=== PATIENT | female | born 1990 | race Caucasian/White ===

== ENCOUNTER 2019-10-29 10:30 | Outpatient (REF) | payer MEDICAID, SELFPAY ==
--- NOTE | 2019-10-29 10:30 | PAPFT_PTH ---
PATIENT: Jaleesa Goddard LOC: NCN U#:[id number] AGE/SX: 29/F ROOM: RE10/29/[address]: Ruby Wallace : 1990 BED: DIS: 10/29/2019 SPEC #: [id number] RECD: 10/30/19 12:50 STATUS: DORITA REVanesa #: [id number] NASH: 10/29/19 10:[address]: Ruby Wallace DEPT: [facility] Cytology RECD BY: Rubina Mendez ENTERED: 10/30/19 12:50 SP TYPE: PAPFT OTHR DR: Shiloh Schulte Tissues: 1 - CX/ENDOCX FOR PAP SMEARS Procedures: PAP THIN PREP/[facility] Screening Comments: [id number] (CHLAMYDIA/GC)
[2019-10-31 14:10] LABS: Chlamydia Result Negative (Negative); GC Result Negative (Negative)
== END 2019-10-29 10:50 ==
LOC: NCHCN 10:30
PROVIDERS: PCP Nurse Practitioner Family; Visit Provider Family Medicine
DX: Z12.79 Encounter for screening for malignant neoplasm of other genitourinary organs (principal); Z12.4 Encounter for screening for malignant neoplasm of cervix; Z11.3 Encounter for screening for infections with a predominantly sexual mode of transmission
CPT/HCPCS: 87491; 87591; 88142

== ENCOUNTER 2020-02-10 13:28 | Outpatient (REF) | payer MEDICAID, SELFPAY ==
[2020-02-13 06:11] LABS: Chlamydia amplified RNA Negative (Negative); N gonorrhoeae amplified RNA Negative (Negative); Source CERVIX
== END 2020-02-10 13:48 ==
LOC: NCHCN 13:28
PROVIDERS: PCP Nurse Practitioner Family; Visit Provider Family Medicine
DX: Z11.3 Encounter for screening for infections with a predominantly sexual mode of transmission (principal)
CPT/HCPCS: 87491; 87591

== ENCOUNTER 2020-06-29 18:19 | Outpatient (REF) | payer MEDICAID, SELFPAY ==
[2020-07-01 02:32] LABS: COVID-19 RT-PCR UVMMC Result Negative (Negative)
== END 2020-06-29 18:20 | disposition home or self-care (01) ==
LOC: NCHCN 18:19
PROVIDERS: PCP Nurse Practitioner Family; Visit Provider Nurse Practitioner Family
DX: Z20.822 Contact with and (suspected) exposure to COVID-19 (principal); R05 Cough
CPT/HCPCS: U0003

== ENCOUNTER 2021-07-22 20:49 | Outpatient (REF) | payer MEDICAID, SELFPAY ==
--- OUTSIDE RECORDS SUMMARY | 2021-07-22 20:52 | XMS_ITS | CCD ---
:1990 Author Care Team Providers Name Role Phone Kusum BERG Attending Physician Unavailable Kusum BERG Er Physician 1 Unavailable H. Registered Nurse Unavailable Vital Signs Vital Sign Value Unit Date/Time Recent/Initial? BMI (Body Mass Index) 31.89 kg/m^2 07/01/2021 16:46 In itial VS Weight Measured 180 lbs 07/01/2021 16:46 Initial VS Height 63 in 07/01/2021 16:46 Initial VS BSA (Body Surface 1.91 m^2 07/01/2021 16:46 Initia l VS Area) BP Systolic 136 mmHg 07/01/2021 16:46 Initial VS BP Diastolic 101 mmHg 07/01/2021 16:46 Initial VS Respiratory Rate 20 bpm 07/01/2021 16:46 Initial VS Heart Rate 78 bpm 07/01/2021 16:46 Initial VS O2 % BldC Oximetry 99 % 07/01/2021 16:46 Initi al VS Body Temperature 36.3 degrees 07/01/2021 16:46 Initial VS BP Systolic 115 mmHg 07/01/2021 18:10 Most Recent VS BP Diastolic 82 mmHg 07/01/2021 18:10 Most Recent VS Respiratory Rate 20 bpm 07/01/2021 18:10 Most Re cent VS Heart Rate 72 bpm 07/01/2021 18:10 Most Recent VS O2 % BldC Oximetry 100 % 07/01/2021 18:10 Most Recent VS Allergies Allergy Code Allergy Type Reaction Status BEES {Clinical 0 Drug allergy SITE SWELLING Active monitoring unavailable} AMOXICILLIN 723 Drug allergy UNKNOWN; Hives Active Procedures Unknown or Not Available. History of Immunizations Unknown or Not Available. Problems Problem Code Start Date Resolved Date Status MATERNAL MENTAL 046069743 Active DISORDER, WITH DELIVERY DEPRESSIVE DISORDER, 38915845 Active NOT ELSEWHERE CLASSIFIED Fibromyalgia 198218009 Active Bipolar disorder 39384696 Active Depression 75699324 Active Results Unknown or Not Available. Active Medications Medication Code Dose Units Frequency Route Modification Start Date/Time Cyclobenzaprine 291404 1 TABLET THREE TIMES ORAL 03/27 10MG Oral Tablet A DAY 21:38 Prescription Detail TAKE 1 TABLET ORAL THREE MARBELLA ES A DAY Bactrim DS 176139 1 TABLET TWICE A ORAL 04/12/2021 800MG-160MG Oral DAY 14:58 Tablet Prescription Detail TAKE 1 TABLET ORAL TWICE A D AY Medications Administered During Visit Medication Dose Units Frequency Route Date/Time of Last Dose HydrOXYzine 25 MG X1 PO 07/01/2021 17 :05 PAMOATE CAPSULE: 25MG Encounters Encounter Diagnosis Diagnosis Code Start Date Other chest pain R0789 07/01/2021 Social History Smoking Status Code Start Date End Date Former smoker [id number] 2008 06/24/2020 Patient Decision Aids Unknown or Not Available. Discharge Instructions You were admitted to [facility] on 07/01/2021 16:23 with a principal diagnosis of Other chest pain You were discharged from [facility] on 07/01/2021 18:21 Should you have any questions prior to d ischarge, please contact a member of your healthcare team. If you have left the spital and have any questions, please contact your primary care physician. Chief Complaint and Reason For Visit Chief Complaint Date of Onset CHEST PAIN Function Status Unknown or Not Available. Plan of Care Unknown or Not Available. Referral/Transition of Care Unknown or Not Available.
--- OUTSIDE RECORDS SUMMARY | 2021-07-22 20:52 | XMS_ITS | CCD ---
:1990 Author Care Team Providers Name Role Phone Kusum DSOUZA Attending Physician Unavailable Kusum DSOUZA Er Physician 1 Unavailable D. Registered Nurse Unavailable Vital Signs Vital Sign Value Unit Date/Time Recent/Initial? BMI (Body Mass Index) 35.43 kg/m^2 04/18/2021 18:15 In itial VS Weight Measured 200 lbs 04/18/2021 18:15 Initial VS Height 63 in 04/18/2021 18:15 Initial VS BSA (Body Surface 2.01 m^2 04/18/2021 18:15 Initia l VS Area) BP Systolic 112 mmHg 04/18/2021 18:15 Initial VS BP Diastolic 82 mmHg 04/18/2021 18:15 Initial VS Respiratory Rate 20 bpm 04/18/2021 18:15 Initial VS Heart Rate 82 bpm 04/18/2021 18:15 Initial VS O2 % BldC Oximetry 100 % 04/18/2021 18:15 Initi al VS Body Temperature 37 degrees 04/18/2021 18:15 Initial VS BP Systolic 118 mmHg 04/18/2021 21:39 Most Recent VS BP Diastolic 76 mmHg 04/18/2021 21:39 Most Recent VS Respiratory Rate 18 bpm 04/18/2021 21:39 Most Re cent VS Heart Rate 75 bpm 04/18/2021 21:39 Most Recent VS O2 % BldC Oximetry 97 % 04/18/2021 21:39 Most Recent VS Body Temperature 37.2 degrees 04/18/2021 21:39 Most Re cent VS Allergies Allergy Code Allergy Type Reaction Status BEES {Clinical 0 Drug allergy SITE SWELLING Active monitoring unavailable} AMOXICILLIN 723 Drug allergy UNKNOWN; Hives Active Procedures Unknown or Not Available. History of Immunizations Unknown or Not Available. Problems Problem Code Start Date Resolved Date Status MATERNAL MENTAL 252810345 Active DISORDER, WITH DELIVERY DEPRESSIVE DISORDER, 92590254 Active NOT ELSEWHERE CLASSIFIED Fibromyalgia 322754020 Active Bipolar disorder 01704604 Active Depression 43398754 Active Results COMPREHENSIVE METABOLIC PANEL (CMP) - Co llect Date/Time: 04/18/2021 18:45 Test Name Code Test Result Test Units Test Ref Range GLUCOSE 2345-7 99 mg/dL L=70 H=11 6 BUN 3094-0 12 mg/dL L=6 H=25 CREATININE 2160-0 0.92 mg/dL L=0.51 H=0.95 SODIUM SERUM 2951-2 135 mmol/L L=136 H=14 5 POTASSIUM SERUM 2823-3 4.2 mmol/L L=3.4 H =5.2 CHLORIDE SERUM 2075-0 101 mmol/L L=96 H= 110 CARBON DIOXIDE (CO2) 2028-9 23 mmol/L L=22 H=34 ANION GAP 70527-1 11.2 mmol/L CALCIUM SERUM 84399-4 9.4 mg/dL L=8.2 H=10.2 BILIRUBIN TOTAL 1975-2 0.2 mg/dL L=0.0 H =1.3 ALK. PHOS. 6768-6 149 U/L L=46 H=11 6 SGOT (AST) 1920-8 24 U/L L=15 H=37 SGPT (ALT) 1742-6 56 U/L L=12 H=78 TOTAL PROTEIN 2885-2 8.7 gm/dL L=6.0 H=8 .0 ALBUMIN 1751-7 4.5 gm/dL L=3.4 H=5. 0 AGE 30 years eGFR (non-Afr.Amer.) 44860-0 73 mL/min eGFR (Afr-Citizen [place]) 52900-6 88 mL/min LIPASE* - Collect Date/Time: 04/18/2021 18:45 Test Name Code Test Result Test Units Test Ref Range LIPASE 148 U/L L=73 H=39 3 CBC W/ DIFFERENTIAL* - Collect Date/Time : 04/18/2021 18:45 Test Name Code Test Result Test Units Test Ref Range WBC 6690-2 7.31 th/cmm L=5.00 H=10.00 NEUT % 56.4 % L=40.0 H=80.0 LYMPH % 34.3 % L=10.0 H=50.0 MONO % 05778-2 6.7 % L=2.0 H=12.0 EOS % 1.5 % L=0.0 H=8. 0 BASO % 0.7 % L=0.0 H=3. 0 IG % 2514-8 0.4 % L=0.0 H=1. 1 NRBC % 35363-3 0.0 % L=0.0 H=0. 0 NEUT abs count 751-8 4.1 th/cmm L=1.6 H= 8.4 LYMPH abs count 731-0 2.5 th/cmm L=1.5 H =4.0 MONO abs count 742-7 0.5 th/cmm L=0.2 H= 1.0 EOS abs count 711-2 0.1 th/cmm L=0.0 H=0 .5 BASO abs count 704-7 0.1 th/cmm L=0.0 H= 0.2 IG abs count 29548-3 0.0 th/cmm L=0.0 H=0. 1 NRBC abs count 34027-3 0.0 mil/cmm L=0.0 H= 0.0 RBC 789-8 5.04 mil/cmm L=3.90 H=5.40 HEMOGLOBIN 718-7 14.0 gm/dL L=12.0 H=16.0 HEMATOCRIT 4544-3 42 % L=37 H=47 MCV 787-2 84 fL L=82 H=92 MCH 785-6 27.8 pg L=27.0 H=31.0 MCHC 786-4 33.2 % L=32.0 H=36.0 RDW-SD 788-0 41.7 fL L=39.0 H=49.0 PLATELET COUNT 777-3 416 th/cmm L=150 H= 450 [facility] COVID RHEONIX* - Collect Date/[place] e: 04/18/2021 19:32 Test Name Code Test Result Test Units Test Ref Range Tier- INPATIENT/ED N/A SARS COV2 RNA: 26200-4 NEGATIVE N/A REFERENCE RAN GE: NEGAT TEST (URINE) QUALITATIVE - Col lect Date/Time: 04/18/2021 18:45 Test Name Code Test Result Test Units Test Ref Range TEST 2106-3 NEGATIVE N/A URINALYSIS WITH REFLEX CULT IF POSITIVE* - Collect Date/Time: 04/18/2021 18:45 Test Name Code Test Result Test Units Test Ref Range COLLECTION MODE: CLEAN CATCH N/A Color 5778-6 YELLOW N/A yellow Appearance 5767-9 CLEAR N/A clear Glucose urine 51272-6 NEGATIVE N/A negative mg/ dl Bilirubin 5770-3 NEGATIVE N/A negative Ketones 2514-8 NEGATIVE N/A negative mg/d l Spec gravity 5811-5 <=1.005 N/A 1.003 - 1.030 pH urine 2756-5 5.5 N/A 5.0 - 7.0 Protein 99699-5 NEGATIVE N/A negative mg/d l Urobilinogen 39866-4 0.2 N/A <or= 1 EU/d l Nitrite. 5802-4 NEGATIVE N/A negative Blood 5794-3 TRACE-IN N/A negative Leukocytes. NEGATIVE N/A negative MICROSCOPIC INDICATED N/A WBCs. 23543-5 0-5 N/A 0-5 / hpf RBCs 14837-1 0-5 N/A 0-5 / hpf Epith cells 05395-3 0-5 N/A 0-5 / hpf Cell types squamous N/A Crystals none N/A none Bacteria minimal N/A none Mucus 8247-9 none N/A none Casts 15078-8 none N/A none /lp f Active Medications Medication Code Dose Units Frequency Route Modification Start Date/Time Cyclobenzaprine 952546 1 TABLET THREE TIMES ORAL 03/27 10MG Oral Tablet A DAY 21:38 Prescription Detail TAKE 1 TABLET ORAL THREE MARBELLA ES A DAY Bactrim DS 087461 1 TABLET TWICE A ORAL 04/12/2021 800MG-160MG Oral DAY 14:58 Tablet Prescription Detail TAKE 1 TABLET ORAL TWICE A D AY Medications Administered During Visit Medication Dose Units Frequency Route Date/Time of Last Dose ACETAMINOPHEN INJ SDV: 1000 MG X1 IVPB 1000MG/100ML 19:25 SODIUM CHLORIDE 0.9% 1000 ML X1 IV 03/27 1000ML 19:25 FentaNYL INJ SDV: 50 MCG X1 IVP 022 100MCG/2ML 19:50 KETOROLAC INJ SDV: 15 MG X1 IVP 2021 30MG/1ML 21:39 CYCLOBENZAPRINE 40 MG X1 PO 2 TABLET: 10MG 21:42 Encounters Encounter Diagnosis Diagnosis Code Start Date Other low back pain M5459 04/18/2021 Social History Smoking Status Code Start Date End Date Former smoker [id number] 2008 06/24/2020 Patient Decision Aids Unknown or Not Available. Discharge Instructions You were admitted to [facility] on 04/18/2021 17:49 with a principal diagnosis of Other low back pain You had the following tests done: [facility] COVID RHEONIX* CBC W/ DIFFERENTIAL* COMPREHENSIVE METABOLIC PANEL (CMP) LIPASE* TEST (URINE) QUALITATIVE URINALYSIS WITH REFLEX CULT IF POSITIVE* You were discharged from [facility] on 04/18/2021 21:48 Should you have any questions prior to d ischarge, please contact a member of your healthcare team. If you have left the ho spital and have any questions, please contact your primary care physician. Chief Complaint and Reason For Visit Chief Complaint Date of Onset STOMACH PAIN 04/18/2021 Function Status Unknown or Not Available. Plan of Care Unknown or Not Available. Referral/Transition of Care Unknown or Not Available.
--- OUTSIDE RECORDS SUMMARY | 2021-07-22 20:53 | XMS_ITS | CCD ---
:1990 Author Care Team Providers Name Role Phone Kusum DSOUZA Attending Physician Unavailable Kusum DSOUZA Er Physician 1 Unavailable Panchito ZIEGLER (Secondary) Physician Unavailab Fowler Registered Nurse Unavailable Ree. Registered Nurse Unavailable Vital Signs Vital Sign Value Unit Date/Time Recent/Initial? BMI (Body Mass Index) 35.43 kg/m^2 04/13/2021 17:43 In itial VS Weight Measured 200 lbs 04/13/2021 17:43 Initial VS Height 63 in 04/13/2021 17:43 Initial VS BSA (Body Surface 2.01 m^2 04/13/2021 17:43 Initia l VS Area) BP Systolic 133 mmHg 04/13/2021 17:43 Initial VS BP Diastolic 81 mmHg 04/13/2021 17:43 Initial VS Respiratory Rate 22 bpm 04/13/2021 17:43 Initial VS Heart Rate 98 bpm 04/13/2021 17:43 Initial VS O2 % BldC Oximetry 99 % 04/13/2021 17:43 Initi al VS BP Systolic 118 mmHg 04/13/2021 20:06 Most Recent VS BP Diastolic 78 mmHg 04/13/2021 20:06 Most Recent VS Respiratory Rate 22 bpm 04/13/2021 20:06 Most Re cent VS Heart Rate 85 bpm 04/13/2021 20:06 Most Recent VS O2 % BldC Oximetry 99 % 04/13/2021 20:06 Most Recent VS Allergies Allergy Code Allergy Type Reaction Status BEES {Clinical 0 Drug allergy SITE SWELLING Active monitoring unavailable} AMOXICILLIN 723 Drug allergy UNKNOWN; Hives Active Procedures Unknown or Not Available. History of Immunizations Unknown or Not Available. Problems Problem Code Start Date Resolved Date Status MATERNAL MENTAL 192607026 Active DISORDER, WITH DELIVERY DEPRESSIVE DISORDER, 36205603 Active NOT ELSEWHERE CLASSIFIED Fibromyalgia 852028065 Active Bipolar disorder 57169954 Active Depression 29645288 Active Results BASIC METABOLIC PANEL (BMP) - Collect Da te/Time: 04/13/2021 18:48 Test Name Code Test Result Test Units Test Ref Range GLUCOSE 2345-7 94 mg/dL L=70 H=11 6 BUN 3094-0 9 mg/dL L=6 H=25 CREATININE 2160-0 0.84 mg/dL L=0.51 H=0.95 SODIUM SERUM 2951-2 142 mmol/L L=136 H=14 5 POTASSIUM SERUM 2823-3 3.7 mmol/L L=3.4 H =5.2 CHLORIDE SERUM 2075-0 104 mmol/L L=96 H= 110 CARBON DIOXIDE (CO2) 2028-9 26 mmol/L L=22 H=34 ANION GAP 10858-3 12.0 mmol/L CALCIUM SERUM 91362-2 9.3 mg/dL L=8.2 H=10.2 AGE 30 years eGFR (non-Afr.Amer.) 39539-1 81 mL/min eGFR (Afr-[place]ristanian) 06438-1 98 mL/min MAGNESIUM SERUM* - Collect Date/Time: 18:48 Test Name Code Test Result Test Units Test Ref Range MAGNESIUM 34843-3 2.2 mg/dL L=1.8 H=2. 4 TROPONIN HIGH SENSITIVITY* - Collect Last e/Time: 04/13/2021 18:48 Test Name Code Test Result Test Units Test Ref Range TROPONIN HS <4.0 pg/mL L=0.0 H=60 .4 Specimen seq. ADM. N/A TROPONIN-I ADM.* - Collect Date/Time: 18:48 Test Name Code Test Result Test Units Test Ref Range TROPONIN-I 79826-6 <0.017 ng/mL L=0.000 H=0. 060 CBC W/ DIFFERENTIAL* - Collect Date/Time : 04/13/2021 18:48 Test Name Code Test Result Test Units Test Ref Range WBC 6690-2 9.30 th/cmm L=5.00 H=10.00 NEUT % 77.9 % L=40.0 H=80.0 LYMPH % 14.2 % L=10.0 H=50.0 MONO % 11826-7 6.5 % L=2.0 H=12.0 EOS % 0.6 % L=0.0 H=8. 0 BASO % 0.4 % L=0.0 H=3. 0 IG % 2514-8 0.4 % L=0.0 H=1. 1 NRBC % 26438-5 0.0 % L=0.0 H=0. 0 NEUT abs count 751-8 7.2 th/cmm L=1.6 H= 8.4 LYMPH abs count 731-0 1.3 th/cmm L=1.5 H =4.0 MONO abs count 742-7 0.6 th/cmm L=0.2 H= 1.0 EOS abs count 711-2 0.1 th/cmm L=0.0 H=0 .5 BASO abs count 704-7 0.0 th/cmm L=0.0 H= 0.2 IG abs count 88118-5 0.0 th/cmm L=0.0 H=0. 1 NRBC abs count 38467-8 0.0 mil/cmm L=0.0 H= 0.0 RBC 789-8 4.60 mil/cmm L=3.90 H=5.40 HEMOGLOBIN 718-7 12.8 gm/dL L=12.0 H=16.0 HEMATOCRIT 4544-3 39 % L=37 H=47 MCV 787-2 86 fL L=82 H=92 MCH 785-6 27.8 pg L=27.0 H=31.0 MCHC 786-4 32.5 % L=32.0 H=36.0 RDW-SD 788-0 43.0 fL L=39.0 H=49.0 PLATELET COUNT 777-3 304 th/cmm L=150 H= 450 Active Medications Medications Administered During Visit Medication Dose Units Frequency Route Date/Time of Last Dose SODIUM CHLORIDE 1000 ML X1 19:01 0.9% 1000ML Encounters Encounter Diagnosis Diagnosis Code Start Date Other chest pain R0789 04/13/2021 Social History Smoking Status Code Start Date End Date Current every day smoker [id number] 2008 Patient Decision Aids Unknown or Not Available. Discharge Instructions You were admitted to [facility] on 04/13/2021 17:19 with a principal diagnosis of Other chest pain You had the following tests done: BASIC METABOLIC PANEL (BMP) CBC W/ DIFFERENTIAL* MAGNESIU M SERUM* TROPONIN HIGH SENSITIVITY* TROPONIN-I ADM.* You were discharged from [facility] on 04/13/2021 20:06 Should you have any questions prior to d ischarge, please contact a member of your healthcare team. If you have left the ho spital and have any questions, please contact your primary care physician. Chief Complaint and Reason For Visit Chief Complaint Date of Onset CHEST PAIN PAIN IN LEFT ARM DIZZINESS Function Status Unknown or Not Available. Plan of Care Unknown or Not Available. Referral/Transition of Care Unknown or Not Available.
--- OUTSIDE RECORDS SUMMARY | 2021-07-22 20:53 | XMS_ITS | CCD ---
:1990 Author Care Team Providers Name Role Phone Junior BASS Attending Physician Unavailable Shane DUGAN Er Physician 1 Unavailable W., X Registered Nurse Unavailable Vital Signs Vital Sign Value Unit Date/Time Recent/Initial? BMI (Body Mass Index) 35.43 kg/m^2 04/12/2021 11:38 In itial VS Weight Measured 200 lbs 04/12/2021 11:38 Initial VS Height 63 in 04/12/2021 11:38 Initial VS BSA (Body Surface 2.01 m^2 04/12/2021 11:38 Initia l VS Area) BP Systolic 132 mmHg 04/12/2021 11:38 Initial VS BP Diastolic 80 mmHg 04/12/2021 11:38 Initial VS Respiratory Rate 18 bpm 04/12/2021 11:38 Initial VS Heart Rate 113 bpm 04/12/2021 11:38 Initial VS O2 % BldC Oximetry 99 % 04/12/2021 11:38 Initi al VS Body Temperature 36 degrees 04/12/2021 11:38 Initial VS BP Systolic 124 mmHg 04/12/2021 14:07 Most Recent VS BP Diastolic 64 mmHg 04/12/2021 14:07 Most Recent VS Respiratory Rate 16 bpm 04/12/2021 16:02 Most Re cent VS Heart Rate 72 bpm 04/12/2021 16:02 Most Recent VS O2 % BldC Oximetry 99 % 04/12/2021 16:02 Most Recent VS Allergies Allergy Code Allergy Type Reaction Status BEES {Clinical 0 Drug allergy SITE SWELLING Active monitoring unavailable} AMOXICILLIN 723 Drug allergy UNKNOWN; Hives Active Procedures Unknown or Not Available. History of Immunizations Unknown or Not Available. Problems Problem Code Start Date Resolved Date Status MATERNAL MENTAL 051096798 Active DISORDER, WITH DELIVERY DEPRESSIVE DISORDER, NOT 99776247 Act donn ELSEWHERE CLASSIFIED Fibromyalgia 898583200 Active Bipolar disorder 17883782 Active Depression 90630264 Active Pyelonephritis 73462991 04/12/2021 Resolved Anxiety 25332589 04/12/2021 Resolved UTI 82187926 04/12/2021 Resolved Results BASIC METABOLIC PANEL (BMP) - Collect Da te/Time: 04/12/2021 11:58 Test Name Code Test Result Test Units Test Ref Range GLUCOSE 2345-7 114 mg/dL L=70 H=11 6 BUN 3094-0 10 mg/dL L=6 H=25 CREATININE 2160-0 0.85 mg/dL L=0.51 H=0.95 SODIUM SERUM 2951-2 141 mmol/L L=136 H=14 5 POTASSIUM SERUM 2823-3 3.9 mmol/L L=3.4 H =5.2 CHLORIDE SERUM 2075-0 105 mmol/L L=96 H= 110 CARBON DIOXIDE (CO2) 2028-9 25 mmol/L L=22 H=34 ANION GAP 98209-8 10.7 mmol/L CALCIUM SERUM 86446-3 9.2 mg/dL L=8.2 H=10.2 AGE 30 years eGFR (non-Afr.Amer.) 43978-9 80 mL/min eGFR (Afr-Greek) 55362-1 96 mL/min CBC W/ DIFFERENTIAL* - Collect Date/Time : 04/12/2021 11:58 Test Name Code Test Result Test Units Test Ref Range WBC 6690-2 11.23 th/cmm L=5.00 H=10.00 NEUT % 77.7 % L=40.0 H=80.0 LYMPH % 12.6 % L=10.0 H=50.0 MONO % 22097-4 8.4 % L=2.0 H=12.0 EOS % 0.5 % L=0.0 H=8. 0 BASO % 0.4 % L=0.0 H=3. 0 IG % 2514-8 0.4 % L=0.0 H=1. 1 NRBC % 91513-9 0.0 % L=0.0 H=0. 0 NEUT abs count 751-8 8.7 th/cmm L=1.6 H= 8.4 LYMPH abs count 731-0 1.4 th/cmm L=1.5 H =4.0 MONO abs count 742-7 0.9 th/cmm L=0.2 H= 1.0 EOS abs count 711-2 0.1 th/cmm L=0.0 H=0 .5 BASO abs count 704-7 0.0 th/cmm L=0.0 H= 0.2 IG abs count 62186-8 0.0 th/cmm L=0.0 H=0. 1 NRBC abs count 63362-9 0.0 mil/cmm L=0.0 H= 0.0 RBC 789-8 4.78 mil/cmm L=3.90 H=5.40 HEMOGLOBIN 718-7 13.2 gm/dL L=12.0 H=16.0 HEMATOCRIT 4544-3 41 % L=37 H=47 MCV 787-2 85 fL L=82 H=92 MCH 785-6 27.6 pg L=27.0 H=31.0 MCHC 786-4 32.4 % L=32.0 H=36.0 RDW-SD 788-0 43.8 fL L=39.0 H=49.0 PLATELET COUNT 777-3 293 th/cmm L=150 H= 450 CULT URINE CULTURE* - Collect Date/Time: 04/12/2021 13:15 Test Name Code Test Result Test Units Test Ref Range COLLECTION MODE: CLEAN CATCH N/A TEST (URINE) QUALITATIVE - Col lect Date/Time: 04/12/2021 13:15 Test Name Code Test Result Test Units Test Ref Range TEST 6-3 NEGATIVE N/A URINALYSIS WITH REFLEX CULT IF POSITIVE* - Collect Date/Time: 04/12/2021 13:15 Test Name Code Test Result Test Units Test Ref Range COLLECTION MODE: CLEAN CATCH N/A Color 5778-6 YELLOW N/A yellow Appearance 5767-9 CLEAR N/A clear Glucose urine 42941-6 NEGATIVE N/A negative mg/ dl Bilirubin 5770-3 NEGATIVE N/A negative Ketones 2514-8 NEGATIVE N/A negative mg/d l Spec gravity 5811-5 1.015 N/A 1.003 - 1.030 pH urine 2756-5 6.0 N/A 5.0 - 7.0 Protein 93197-8 NEGATIVE N/A negative mg/d l Urobilinogen 65569-0 0.2 N/A <or= 1 EU/d l Nitrite. 5802-4 NEGATIVE N/A negative Blood 5794-3 SMALL N/A negative Leukocytes. NEGATIVE N/A negative MICROSCOPIC INDICATED N/A WBCs. 65881-4 10-25 N/A 0-5 / hpf RBCs 03020-4 0-5 N/A 0-5 / hpf Epith cells 40712-1 5-10 N/A 0-5 / hpf Cell types squamous N/A Crystals none N/A none Bacteria minimal N/A none Mucus 8247-9 none N/A none Casts 40551-4 none N/A none /lp f Active Medications Medication Code Dose Units Frequency Route Modification Start Date/Time SODIUM 8177747 X1 IV 04/12/2021 CHLORIDE 0.9% 12:43 1000ML ~~ SODIUM 5558277 1018 ML CHLORIDE 0.9% 1000ML Medications Administered During Visit Medication Dose Units Frequency Route Date/Time of Last Dose KETOROLAC INJ SDV: 15 MG X1 IVP 2021 30MG/1ML 13:17 SODIUM CHLORIDE 0.9% 1000 ML X1 IV 03/26 1000ML 13:13 CefTRIAXone IVPB: 1 GM X1 IVPB 022 1GM/50ML 15:30 ACETAMINOPHEN INJ 1000 MG X1 IVPB 022 SDV: 1000MG/100ML 15:00 Encounters Encounter Diagnosis Diagnosis Code Start Date Acute pyelonephritis N10 04/12/2021 Social History Smoking Status Code Start Date End Date Current every day smoker [id number] 2008 Patient Decision Aids Unknown or Not Available. Discharge Instructions You were admitted to [facility] on 04/12/2021 11:17 with a principal diagnosis of Acute pyelonephritis You had the following tests done: CULT URINE CULTURE* TEST (URINE) QUALITATIVE URINALYSIS WITH REFLEX CULT IF POSITIVE* BASIC METABOLIC PANEL (BMP) CBC W/ DIFFERENTIAL* You were discharged from [facility] on 04/12/2021 16:25 Should you have any questions prior to d ischarge, please contact a member of your healthcare team. If you have left the ho spital and have any questions, please contact your primary care physician. Chief Complaint and Reason For Visit Chief Complaint Date of Onset KIDNEY PAIN INTO BACK PAIN Function Status Unknown or Not Available. Plan of Care Unknown or Not Available. Referral/Transition of Care Unknown or Not Available.
--- OUTSIDE RECORDS SUMMARY | 2021-07-22 20:53 | XMS_ITS ---
:1990 Author Care Team Providers Name Role Phone Autumn Hagen Primary Care Provider Unavailable Allergies Code Code System Name Reaction Severity Status Onset 723 RxNorm Amoxicillin ? ? Active ? Bee Venom Anaphylaxis ? Active ? Protein (Honey Bee) Medications Name Status Start Date Stop Date ? ? benzoyl peroxide 10 % topical cleanser Active ? Not available APPLY TOPICALLY TO AFFECTED AREA DAILY FOR FACE TRUNK AND EXTREMITIES. AVOID EYE CONTACT. CAUTION MAY BLEACH CLOTHING/TOWELS buprenorphine 2 mg-naloxone 0.5 mg sublingual tablet Active ? Not available DISSOLVE 1/2 TABLET UNDER THE TONGUE EVERY DAY FOR 14 DAYS D IRECTED cetirizine 10 mg tablet Active ? Not avai lable TAKE 1 TABLET BY MOUTH EVERY DAY Chantix Starting Month Box 0.5 mg (11)-1 mg (42) tablets in dose pack Completed ? 04/14/2020 TK 0.5MG T PO QD FOR THREE DAYS THEN 0.5MG T BID FOR FOUR DAYS THEN 1MG PO BID clindamycin 1 %-benzoyl peroxide 5 % topical gel Completed ? 05/05/2020 APPLY DIRECTED BY clonazepam 1 mg tablet Completed ? 1 TAKE ONE TABLET BY MOUTH TWICE A DAY docosanol 10 % topical cream Completed ? 12/2020 APPLY TO AFFECTED AREA FIVE TIMES A DAY epinephrine 0.3 mg/0.3 mL injection, auto-injector Active ? Not available INJECT 1 PEN IN THE MUSCLE ONE TIME DIRECTED Flovent HFA 220 mcg/actuation aerosol inhaler Active ? Not available INHALE 2 PUFFS BY MOUTH ONCE OR TWICE DAILY fluoxetine 20 mg capsule Completed ? 021 TAKE 3 CAPSULES BY MOUTH EVERY DAY IN THE MORNING fluoxetine 20 mg tablet Completed 01/07/2020 04/07/19 21 Take 4 tablets every day by oral route. fluoxetine 40 mg capsule Completed ? 021 TAKE TWO CAPSULES BY MOUTH EVERY DAY fluticasone propionate 50 mcg/actuation nasal spray,suspension A ctive ? Not available SHAKE LIQUID AND USE 2 SPRAYS IN EACH NOSTRIL DAILY gabapentin Completed 09/24/2019 03/02/2020 2400 mg daily gabapentin 400 mg capsule Active ? Not av ailable TAKE 2 CAPSULES BY MOUTH THREE TIMES DAILY gabapentin 600 mg tablet Completed ? 021 TAKE TWO TABLETS BY MOUTH FOUR TIMES A DAY gabapentin 800 mg tablet Completed ? 021 TAKE 1 TABLET BY MOUTH THREE TIMES DAILY FOR 14 DAYS nicotine 21 mg/24 hr daily transdermal patch Completed ? 05/05/2020 APPLY 1 PATCH EXTERNALLY ONCE DAILY TO HAIRLESS AREA ROTATING S KIN SITES Nicotrol 10 mg inhalation cartridge Completed ? 05/05/2020 INHALE 10MG INTO THE LUNGS NEEDED DIRECTED omeprazole 20 mg capsule,delayed release Active ? Not available TAKE 1 TABLET BY MOUTH EVERY DAY ondansetron 8 mg disintegrating tablet Completed ? 05/05/[address] PL[address] ONE TABLET UNDER THE TONGUE EVERY 8 HOURS NEEDED F OR NAUSEA/VOMITING ondansetron HCl 4 mg tablet Completed ? 04/26 TAKE 1-2 TABLETS BY MOUTH ONCE DAILY NEEDED FOR NAUSEA pregabalin 100 mg capsule Completed ? 2020 ProAir HFA 90 mcg/actuation aerosol inhaler Active ? Not available INHALE 2 INHALATIONS BY MOUTH EVERY 4 HOURS FOR COUGH OR WHEEZI NG Risperdal Completed 12/22/2019 03/02/2020 2 mg risperidone 2 mg tablet Completed ? 05/05/19 21 TAKE ONE TABLET BY MOUTH AT BEDTIME risperidone 3 mg tablet Active ? Not avai lable TAKE 1 TABLET BY MOUTH EVERY DAY AT BEDTIME sertraline 100 mg tablet Active ? Not mallorie ilable TAKE 1 TABLET BY MOUTH EVERY DAY IN THE MORNING sertraline 50 mg tablet Completed ? 05/05/19 21 TAKE 1 TABLET BY MOUTH EVERY DAY IN THE MORNING SF 5000 Plus 1.1 % dental cream Active ? Not available USE DIRECTED Suboxone 8 mg-2 mg sublingual film Completed ? 03/10/2020 DISSOLVE 1 FILM UNDER THE TONGUE ONCE DAILY sulfamethoxazole 800 mg-trimethoprim 160 mg tablet Completed ? 03/02/2020 TK 1 T PO BID valacyclovir 1 gram tablet Active ? Not a vailable TAKE TWO TABLETS BY MOUTH EVERY 12 HOUR S FOR 2 DOSES TAKE AT FIRST SIGN OF COLD SORE venlafaxine ER 150 mg capsule,extended release 24 hr Completed ? 03/02/2020 TAKE ONE CAPSULE BY MOUTH EVERY DAY venlafaxine ER 37.5 mg capsule,extended release 24 hr Completed ? 03/02/2020 TAKE ONE CAPSULE BY MOUTH EVERY DAY venlafaxine ER 75 mg capsule,extended release 24 hr Completed ? 03/02/2020 TAKE ONE CAPSULE BY MOUTH EVERY DAY Vyvanse 30 mg capsule Completed ? 07/20/2020 TAKE 1 CAPSULE BY MOUTH EVERY DAY IN THE MORNING FOR 14 DAYS Vyvanse 40 mg capsule Active ? Not availa ble TAKE 1 CAPSULE BY MOUTH EVERY DAY IN THE MORNING Problems Name Status Onset Date Source ? Major Depressive Disorder Active 09/24/2019 Histor y Generalized Anxiety Disorder Active 09/24/2019 His tory Asthma Active 09/24/2019 History Fibromyalgia Active 09/24/2019 History Nausea Active 09/29/2019 History Opioid Dependence Active 01/07/2020 History Restless Legs Active 05/05/2020 History Attention Deficit Hyperactivity Active 07/09/2020 History Disorder Procedures None recorded. Results Lab Results None recorded. Past Encounters 08/31/2020 Autumn Hagen, PROFILE MILL OPERATOR TAPE CONTROL: [address] [place] [phone], Ph. 08/17/2020 Autumn Hagen, PROFILE MILL OPERATOR TAPE CONTR[employer]: [address] [place] [phone], Ph. 08/03/2020 Jenny Zambrano, PROFILE MILL OPERATOR TAPE CONTR[employer]: [address] [place] [phone], Ph. 07/20/2020 Patient_import: [address] [place] [phone], Ph. 06/30/2020 Patient_import: [address] [place] [address] [place] [phone], Ph. 06/16/2020 Patient_import: [address] [place] [phone], Ph. 06/02/2020 Patient_import: [address] [place] [phone], Ph. 05/18/2020 Patient_import: [facility], [place] ite [address] [place] [phone], Ph. 05/05/2020 Patient_import: [facility], ite [address] [place] [phone], Ph. 04/14/2020 Patient_import: [address] [place] [address], ite [address] [place] [phone], Ph. 04/07/2020 Patient_import: [address] [place] [address], ite [address] [place] [phone], Ph. 03/23/2020 Patient_import: [address] [place] [address], ite [address] [place] [phone], Ph. 03/10/2020 Patient_import: [address] [place] [address], ite [address] [place] [phone], Ph. 03/02/2020 Patient_import: [address] [place] [address], ite [address] [place] [phone], Ph. 02/24/2020 Patient_import: [address] [place] [address] [place] [phone], Ph. 02/11/2020 Patient_import: [address] [place] [address] [place] [phone], Ph. 02/04/2020 DUNCAN Handy-: [address] [place], [address] [phone], Ph. 01/21/2020 DUNCAN Handy-BC: [address] [place], [address] [phone], Ph. Social History None recorded. Vaccine List Notes: CARLYLE OLIVERA ON FILE ; PSYCH MED [facility] Plan of Care Reminders Provider Appointments None ? ? recorded. Lab None ? ? recorded. Referral None ? ? recorded. Procedures None ? ? recorded. Surgeries None ? ? recorded. Imaging None ? ? recorded. Vitals None recorded.
[2021-07-26 07:30] LABS: Chlamydia Result Negative (Negative); GC Result Negative (Negative)
== END 2021-07-22 20:50 | disposition home or self-care (01) ==
LOC: NCHCN 20:49
PROVIDERS: PCP Nurse Practitioner Family; Visit Provider Internal Medicine
DX: Z11.3 Encounter for screening for infections with a predominantly sexual mode of transmission (principal)
CPT/HCPCS: 87491; 87591

== ENCOUNTER 2021-08-18 13:54 | Outpatient (REF) | payer MEDICAID, SELFPAY ==
[2021-08-18 20:50] LABS: Abs Immature Grans 0.02 10^3/uL (0.0-0.06); Absolute Basophil Count 0.05 10^3/uL (0.0-0.2); Absolute Lymphocyte Count 2.25 10^3/uL (1.2-3.4); Absolute Monocyte Count 0.61 10^3/uL (0.1-0.8); Absolute Neutrophil Count 5.46 10^3/uL (1.2-6.7); Basophils % 0.6; Eosinophils % 1.2; HCT 41.6 % (36.0-46.0); Immature Grans % 0.2; Lymphocytes % 26.5; MCH 27.3 pg (27.0-33.0); MCHC 31.3 % (32.0-36.0); MCV 87 fL (80-95); MPV 9.6 fL (8.0-11.0); Monocytes % 7.2; Neutrophils % 64.3; Platelet Count 356 10^3/uL (130-400); RBC 4.76 10^6/uL (3.93-5.22); RDW 13.3 % (11.7-14.6); WBC 8.49 10^3/uL (4.4-10.8)
[2021-08-18 21:10] LABS: TSH (W/Ref FT4) 3.83 uIU/mL (0.36-3.74)
[2021-08-18 21:30] LABS: FREE T4 0.69 ng/dL (0.76-1.46)
[2021-08-20 10:31] LABS: COVID-19 RT-PCR UVMMC Result Negative (Negative)
== END 2021-08-18 13:55 | disposition home or self-care (01) ==
LOC: NCHCN 13:54
PROVIDERS: PCP Nurse Practitioner Family; Visit Provider Registered Nurse
DX: Z20.822 Contact with and (suspected) exposure to COVID-19 (principal); R13.10 Dysphagia, unspecified
CPT/HCPCS: U0003; 84439; 84443; 85025

== ENCOUNTER 2021-09-14 17:51 | Outpatient (REF) | payer MEDICAID, SELFPAY ==
[2021-09-14 20:41] LABS: Abs Immature Grans 0.04 10^3/uL (0.0-0.06); Absolute Basophil Count 0.06 10^3/uL (0.0-0.2); Absolute Eosinophil Count 0.09 10^3/uL (0.0-0.7); Absolute Lymphocyte Count 2.53 10^3/uL (1.2-3.4); Absolute Monocyte Count 0.51 10^3/uL (0.1-0.8); Absolute Neutrophil Count 6.24 10^3/uL (1.2-6.7); Basophils % 0.6; HCT 40.1 % (36.0-46.0); Immature Grans % 0.4; Lymphocytes % 26.7; MCH 27.5 pg (27.0-33.0); MCHC 32.4 % (32.0-36.0); MCV 85 fL (80-95); MPV 8.9 fL (8.0-11.0); Monocytes % 5.4; Neutrophils % 65.9; Platelet Count 385 10^3/uL (130-400); RBC 4.72 10^6/uL (3.93-5.22); RDW 12.6 % (11.7-14.6); RDW-SD 39.2 fL; WBC 9.47 10^3/uL (4.4-10.8)
[2021-09-14 21:03] LABS: ALT 70 U/L (14-59); AST 47 U/L (15-37); Albumin 3.8 g/dL (3.4-5.0); Alkaline Phosphatase 78 U/L (46-116); BUN 20 mg/dL (7-18); Bilirubin, Total 0.2 mg/dL (0.2-1.0); CREATININE 0.9 mg/dL (0.55-1.02); Calcium 8.9 mg/dL (8.5-10.1); Chloride 101 mmol/L (98-107); Glucose 92 mg/dL (74-106); Lipase 72 U/L (73-393); Potassium 4.2 mmol/L (3.5-5.1); Sodium 137 mmol/L (136-145); Total Protein 7.7 g/dL (6.4-8.2)
[2021-09-15 12:21] LABS: TSH 4.43 uIU/mL (0.36-3.74)
[2021-09-16 14:49] LABS: Chlamydia Result Negative (Negative); GC Result Negative (Negative)
== END 2021-09-14 17:52 | disposition home or self-care (01) ==
LOC: NCHCN 17:51
PROVIDERS: PCP Nurse Practitioner Family; Visit Provider Family Medicine
DX: E03.9 Hypothyroidism, unspecified (principal); R10.30 Lower abdominal pain, unspecified; R30.0 Dysuria; M54.59 Other low back pain; Z11.3 Encounter for screening for infections with a predominantly sexual mode of transmission
CPT/HCPCS: 80053; 83690; 87491; 87591; 84443; 85025

== ENCOUNTER 2021-09-23 14:18 | Outpatient (REF) | payer MEDICAID, SELFPAY ==
[2021-09-23 21:41] LABS: Hemoglobin A1C 5.4 % (<5.7)
[2021-09-26 06:18] LABS: Vitamin D 25 Total 38.2 ng/mL (30-100)
== END 2021-09-23 14:19 | disposition home or self-care (01) ==
LOC: NCHCN 14:18
PROVIDERS: Nurse Practitioner Psychiatric/Mental Health; PCP Nurse Practitioner Family; Visit Provider Family Medicine
DX: F41.8 Other specified anxiety disorders (principal); Z13.1 Encounter for screening for diabetes mellitus
CPT/HCPCS: 82306; 83036

== ENCOUNTER 2022-05-02 16:38 | Outpatient (REF) | payer MEDICAID, SELFPAY ==
[2022-05-04 13:26] LABS: Chlamydia Result Negative (Negative); GC Result Negative (Negative)
== END 2022-05-02 16:39 | disposition home or self-care (01) ==
LOC: NCHCN 16:38
PROVIDERS: PCP Nurse Practitioner Family; Visit Provider Family Medicine
DX: Z11.3 Encounter for screening for infections with a predominantly sexual mode of transmission (principal)
CPT/HCPCS: 87491; 87591

== ENCOUNTER 2022-07-26 15:24 | Outpatient (REF) | payer MEDICAID, SELFPAY ==
[2022-07-28 13:32] LABS: HSV 1 DNA Result Negative (Negative); HSV 2 DNA Result Positive (Negative)
== END 2022-07-26 15:25 | disposition home or self-care (01) ==
LOC: NCHCN 15:24
PROVIDERS: PCP Nurse Practitioner Family; Visit Provider Family Medicine
DX: Z11.3 Encounter for screening for infections with a predominantly sexual mode of transmission (principal); Z11.59 Encounter for screening for other viral diseases
CPT/HCPCS: 87529

== ENCOUNTER 2022-08-07 09:39 | Outpatient (REF) | payer MEDICAID, SELFPAY ==
--- NOTE | 2022-08-07 08:15 | PAPFT_PTH ---
PATIENT: Jaleesa Goddard LOC: [facility] U#:[id number] AGE/SX: 32/F ROOM: RE08/07/[address]: Ruby Wallace : 1990 BED: DIS: 08/07/2022 SPEC #: [id number] RECD: 08/07/22 18:22 STATUS: DORITA REQ #: [id number] NASH: 08/07/22 08:[address]: Ruby Wallace DEPT: [facility] Cytology RECD BY: Rubina Mendez ENTERED: 08/07/22 18:22 SP TYPE: PAPFT OTHR DR: Shiloh Schulte Tissues: 1 - CX/ENDOCX FOR PAP SMEARS Procedures: PAP THIN PREP/[facility] Screening HPV DNA PROBE Comments: [id number] (CHLAMYDIA/GC)
[2022-08-08 10:23] LABS: Syphilis Serology (RPR) Negative (Negative)
[2022-08-08 10:41] LABS: HIV-1/2 Ag & Ab Screen Negative (Negative)
[2022-08-08 10:44] LABS: Hepatitis C Ab w Rflx HCV PCR Negative (Negative)
[2022-08-08 14:22] LABS: Chlamydia Result Negative (Negative); GC Result Negative (Negative)
== END 2022-08-07 09:40 | disposition home or self-care (01) ==
LOC: LBN 09:39
PROVIDERS: PCP Nurse Practitioner Family; Visit Provider Family Medicine
DX: R10.2 Pelvic and perineal pain (principal); Z11.3 Encounter for screening for infections with a predominantly sexual mode of transmission; Z12.4 Encounter for screening for malignant neoplasm of cervix; Z11.4 Encounter for screening for human immunodeficiency virus [HIV]; Z11.59 Encounter for screening for other viral diseases; Z11.51 Encounter for screening for human papillomavirus (HPV)
CPT/HCPCS: 86803; 87389; 87491; 87591; 88142; 86592; 87624